=== PATIENT | female | born 1995 | race African-American/Black ===

== ENCOUNTER 2017-08-09 18:08 | Emergency (ER) | payer OTHER ==
[2017-08-09 18:25] VITALS: BP 134/68; PULSE 94; TEMP 98; BMI 25.0
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
[2017-08-09] MEDS ORDERED: IBUPROFEN 600 MG TABLET (FP) PO ONE ×3 (19:12→19:17)
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
== END 2017-08-09 19:20 | disposition home or self-care (01) ==
LOC: JERFT 18:08
DX: S13.4XXA Sprain of ligaments of cervical spine, initial encounter (principal); V43.62XA Car passenger injured in collision with other type car in traffic accident, initial encounter; Y93.89 Activity, other specified; Y92.410 Unspecified street and highway as the place of occurrence of the external cause
CPT/HCPCS: 84703; 99281-25

== ENCOUNTER 2017-12-09 10:51 | Emergency (ER) | payer OTHER ==
[2017-12-09 11:13] VITALS: BP 130/74; PULSE 85; TEMP 99; BMI 25.0
--- NOTE | 2017-12-09 11:39 | PDOC ---
History of Present Illness - General Chief Complaint: Pain Stated Complaint: LT HIP PAIN Time Seen by Provider: 12/09/17 11:21 History Source: Patient Exam Limitations: Clinical Condition - History of Present Illness Initial Comments: 12/09/17 11:29 Patient with no sig PMHx present with complains of left hip pain which has been intermittent for 3 years now. report no trauma or prev injury to hip. report pain comes on when she laying down or ambulating . Denies problem with ambulation Timing/Duration: other (3 years) Severity: moderate Modifying Factors: improves with: rest. worse with: movement Associated Symptoms: reports: denies symptoms Aspirin Received prior to arrival: Yes: no aspirin today Asa Contraindications(Core Measure): Yes: Allergy Past History - Past Medical History Allergies/Adverse Reactions: Allergies Allergy/AdvReac Type Severity Reaction Status Date / Time No Known Allergies Allergy Verified 12/09/17 11:05 Home Medications: Ambulatory Orders Meloxicam 7.5 mg PO DAILY PRN #20 tablet 12/09/17 COPD: No - Suicide/Smoking/Psychosocial Hx Smoking Status: No Smoking History: Never smoked Have you smoked in the past 12 months: No Number of Cigarettes Smoked Daily: 0 Information on smoking cessation initiated: No Hx Alcohol Use: No Drug/Substance Use Hx: No Substance Use Type: None Review of Systems - Review of Systems Is the patient limited Tanzanian proficient: No Constitutional: No: Chills, Diaphoresis, Fever, Loss of Appetite, Malaise, Night Sweats, Weakness, Weight Stable, Unintentional Wgt. Loss, Unexplained wgt Loss, Other HEENTM: No: Eye Pain, Blurred Vision, Tearing, Recent change in vision, Double Vision, Cataracts, Ear Pain, Ocular Prothesis, Ear Discharge, Nose Pain, Nose Congestion, Tinnitus, Nose Bleeding, Hearing Loss, Throat Pain, Throat Swelling , Mouth Pain, Dental Problems, Difficulty Swallowing, Mouth Swelling, Other Respiratory: No: Cough, Orthopnea, Shortness of Breath, SOB with Exertion, SOB at Rest, Stridor, Wheezing, Productive cough, Hemoptysis, Other Cardiac (ROS): No: Chest Pain, Edema, Irregular Heart Rate, Lightheadedness, Palpitations, Syncope, Chest Tightness, Other ABD/GI: No: Abdominal Distended, Abd. Pain w/ defecation, Blood Streaked Bowels , Constipated, Diarrhea, Difficulty Swallowing, Nausea, Poor Appetite, Poor Fluid Intake, Rectal Bleeding, Vomiting, Indigestion, Abdominal cramping, Tarry Stools, Other : No: Burning, Dysuria, Discharge, Frequency, Flank Pain, Hematuria, Incontinence, Pain, Urgency, Other Musculoskeletal: Yes: Joint Pain (left hip). No: Back Pain, Gout, Joint Swelling, Muscle Pain, Muscle Weakness, Neck Pain, Joint Stiffness, Other Neurological: No: Headache, Numbness, Paresthesia, Pre-Existing Deficit, Seizure , Tingling, Tremors, Weakness, Unsteady Gait, Ataxia, Dizziness, Other Psychiatric: No: Anxiety, Depression, Frequent Crying, Stressors, Sleep Pattern Change, Emotional Problems, Mood Swings, Change in Appetite, Other Endocrine: No: Excessive Sweating, Flushing, Intolerance to Cold, Intolerance to Heat, Increased Hunger, Increased Thirst, Increased Urine, Unexplained Weight Gain, Unexplained Weight Loss, Change in Weight, Other Hematologic/Lymphatic: No: Anemia, Blood Clots, Easy Bleeding, Easy Bruising, Bleeding Diathesis, Lymph Node Abnormalities, Swollen Glands, Other *Physical Exam - Vital Signs Last Vital Signs Temp Pulse Resp BP Pulse Ox 99 F 85 16 130/74 100 12/09/17 11:00 12/09/17 11:00 12/09/17 11:00 12/09/17 11:00 12/09/17 11:00 - Physical Exam General Appearance: Yes: Nourished, Appropriately Dressed. No: Apparent Distress HEENT: positive: ONEIL, Normal ENT Inspection, TMs Normal, Pharynx Normal Neck: positive: Trachea midline, Normal Thyroid, Supple. negative: Tender, Rigid Respiratory/Chest: positive: Lungs Clear, Normal Breath Sounds. negative: Chest Tender, Respiratory Distress, Accessory Muscle Use Cardiovascular: positive: Regular Rhythm, Regular Rate Musculoskeletal: positive: Normal Inspection Extremity: positive: Normal Capillary Refill, Normal Inspection, Normal Range of Motion, Pelvis Stable. negative: Tender Neurologic: positive: bilingual speech language pathologist II-XII NML intact, Fully Oriented, Alert, Normal Mood/ Affect, Normal Response, Motor Strength 5/5 (left hip and LE) ED Treatment Course - RADIOLOGY Radiology Studies Ordered: Category Date Time Status HIP & PELVIS-LEFT [RAD] Stat Radiology 12/09/17 11:26 Ordered Medical Decision Making - Medical Decision Making 12/09/17 11:43 Patient present with complains of 3 years h/o left hip pain. no acute pain illicited on exam. x-rays of left hip/pelvis ordered 12/09/17 12:13 x-rays of left hip/pelvis shows no pathology. symptoms likely bursitis. stable for home discharge with orthopedics follow-up *DC/Admit/Observation/Transfer Diagnosis at time of Disposition: Bursitis of left hip Qualifiers: Hip bursitis location: unspecified Qualified Code(s): M70.72 - Other bursitis of hip, left hip - Discharge Dispostion Disposition: HOME Condition at time of disposition: Good Decision to Admit order: No - Prescriptions Prescriptions: Meloxicam 7.5 mg PO DAILY PRN #20 tablet PRN Reason: hip pain - Referrals Referrals: Kate Britton MD [Primary Care Provider] - Oli Stockton MD [Staff Physician] - - Patient Instructions Printed Discharge Instructions: DI for Hip Bursitis, Bursitis (Alternative Therapy) Additional Instructions: Take medication as prescribed. apply to heat twice/ day as needed for pain. follow-up with orthopedics if symptoms persists - Post Discharge Activity
== END 2017-12-09 12:19 | disposition home or self-care (01) ==
LOC: JERFT 10:51
DX: M70.72 Other bursitis of hip, left hip (principal)
CPT/HCPCS: 73523-TC-FY; 84703; 99281-25

== ENCOUNTER 2019-08-25 18:10 | Emergency (ER) | payer OTHER ==
[2019-08-25 18:42] VITALS: BP 124/86; PULSE 96; TEMP 99
--- NOTE | 2019-08-25 18:49 | PDOC ---
Rapid Medical Evaluation Time Seen by Provider: 08/25/19 18:35 Medical Evaluation: Allergies Allergy/AdvReac Type Severity Reaction Status Date / Time No Known Allergies Allergy Verified 12/09/17 11:05 Vital Signs Temp Pulse Resp BP Pulse Ox 99.0 F 96 H 17 124/86 100 08/25/19 18:41 08/25/19 18:41 08/25/19 18:41 08/25/19 18:41 08/25/19 18:41 08/25/19 18:44 HPI: COVID-19 CDC guideline data points: The patient is a 23 y/o female with a cough and bodyaches for the last 2 days. The patient states one week ago she started to have intermittent headaches. She denies COVID contacts or any recent travel. She denies any past medical history or allergies to medications. ROS: NEGATIVE: difficulty breathing, shortness of breath, chest pain, lightheadedness, dizziness, nausea, vomiting and diarrhea. Other 12 point ROS reviewed and negative. Exam: General: NAD, Well-Appearing, Awake, Alert Oriented x3. Vital signs stable. Nontoxic ENT: No rhinorrhea or nasal congestion. Neck: FROM, no midline tenderness. Lungs: Clear to auscultation bilaterally without wheezes, rhonchi or rales. Normal excursion. Patient is able to speak in full sentences. Good air entry b/l, no wheezes/rales/rhonchi Heart: HR: 96, Regular rhythm, S1-S2 present, no murmurs rubs or gallops. Abdomen: Non-distended. MSK/Extremities: No decrease ROM, No obvious deformities. No obvious cyanosis noted. Neuro: Normal Gait, Cranial Nerves II through XII Grossly Intact. Skin: No obvious rashes, bruising. Color Normal Appearing. Assessment/Plan: Pt is a 23 y/o female with cough, bodyaches and intermittent headaches. Patient has a history of this/these comorbidities: none, denies recent travel and known COVID exposure. Patient does not meet testing criteria at this time. ASSESSMENT: Denies recent travel and known Covid exposure. Treatment: none indicated Discharge Disposition - Diagnosis Cough - Discharge Dispostion Disposition: HOME Condition at time of disposition: Stable - Referrals Referrals: Garret Simmons, ASSOCIATE DOCTOR [Primary Care Provider] - 2 Days - Patient Instructions Printed Discharge Instructions: [facility] Instructions, [facility] COVID-19 Isolation Protocol Additional Instructions: You were seen for your cough and possible Coronavirus (COVID-19) Please call the [facility] testing center to make an appointment at or you can call [facility] at from 8:30 AM to 6 PM; or you can visit the [facility] website: [email or web address] for more information about testing at the [facility]. Take Tylenol 650 mg every 6 hours as needed for fever or pain. You may take Robitussin or other [id number] cough syrup. Follow the dosing instru ctions on the bottle. Warm tea, honey, and salt water gargles may help your symptoms. Please take precautions and self quarantine for 2 weeks and follow-up with your primary care doctor and the Department of Health. Return to the nearest emergency department for shortness of breath, difficulty breathing, chest pain, or if you have any changes in your symptoms. visit: [email or web address] for further instructions - Post Discharge Activity
== END 2019-08-25 18:56 | disposition home or self-care (01) ==
LOC: JER 18:10
DX: R05 Cough (principal)
CPT/HCPCS: 99282-25

== ENCOUNTER 2021-05-05 14:03 | Emergency (ER) | payer SELFPAY ==
[2021-05-05] MEDS ORDERED: LACTATED RINGERS SOLUTION 1000 ML INFUS.BAG IV ONE (14:40)
[2021-05-05 15:27] LABS: BASO % 0.4 % (0-2.0); EOS % 0.5 % (0-4.5); HEMOGLOBIN 13.8 GM/dL (10.7-15.3); LYMPH % 22.9 % (8-40); MCH 30.4 pg (25.7-33.7); MCHC 33.7 g/dl (32.0-36.0); MEAN CELL VOLUME 90.4 fl (80-96); MEAN PLT VOLUME 8.1 fl (7.5-11.1); MONO % 9.2 % (3.8-10.2); PLATELET COUNT 309 10^3/uL (134-434); RBC 4.53 M/mm3 (3.60-5.2); WHITE BLOOD COUNT 5.5 K/mm3 (4.0-10.0)
[2021-05-05 15:35] LABS: INR 1.03 (0.83-1.09); PROTHROMBIN TIME (PATIENT) 12.1 SEC (9.7-13.0)
[2021-05-05 15:37] VITALS: BMI 31.3
[2021-05-05 15:37] LABS: ACTIVATED PTT 29.9 SECONDS (25.2-36.5)
[2021-05-05 15:47] LABS: CHLORIDE 104 mmol/L (98-107); SODIUM 137 mmol/L (136-145)
[2021-05-05 15:49] LABS: ALBUMIN 3.7 g/dl (3.4-5.0); ANION GAP 13 MMOL/L (8-16); BLOOD UREA NITROGEN 7.9 mg/dL (7-18); CALCIUM 9.2 mg/dL (8.5-10.1); CO2 21 mmol/L (21-32); GLUCOSE,RANDOM 93 mg/dL (74-106)
[2021-05-05 15:52] LABS: CREATININE 0.8 mg/dL (0.55-1.3); SGOT/AST 14 U/L (15-37)
[2021-05-05 15:53] LABS: SGPT/ALT 18 U/L (13-61)
[2021-05-05 15:54] LABS: BILIRUBIN,TOTAL 0.3 mg/dL (0.2-1); TOT PROT 7.8 g/dl (6.4-8.2)
[2021-05-05 15:55] LABS: ALK PHOS 77 U/L (45-117)
[2021-05-05] MEDS ORDERED: POTASSIUM CHLORIDE TABS 20 MEQ TABLET.ER (FP) PO ONE ×2 (16:51→16:54)
[2021-05-05 17:06] VITALS: TEMP 97.6
[2021-05-05 17:52] LABS: EPI CELLS 13 /uL (0-25.1); HYALINE CASTS 1 /uL (0-3.1); PH,URINE 5.5 (5.0-8.0); URINE APPEARANCE CLEAR; URINE BACTERIA 206 /uL (0-1359); URINE BILIRUBIN NEGATIVE (NEGATIVE); URINE COLOR YELLOW; URINE GLUCOSE (UA) NEGATIVE (NEGATIVE); URINE KETONE NEGATIVE (NEGATIVE); URINE LEUK ESTERASE NEGATIVE (NEGATIVE); URINE NITRITE NEGATIVE (NEGATIVE); URINE PROTEIN TRACE (NEGATIVE); URINE RBC 172 /uL (0-23.9); URINE UROBILINOGEN 0.2 mg/dL (0.2-1.0); URINE WBC 17 /uL (0-25.8)
[2021-05-05 18:06] LABS: COCAINE, UR NEGATIVE (NEGATIVE); METHADONE, UR NEGATIVE (NEGATIVE)
[2021-05-05 18:07] LABS: OPIATES, URI NEGATIVE (NEGATIVE); PHENCYCLIDINE,URINE NEGATIVE (NEGATIVE); URINE BARBITURATES NEGATIVE (NEGATIVE); URINE BENZODIAZEPINES NEGATIVE (NEGATIVE)
[2021-05-05 18:11] LABS: URINE AMPHETAMINES NEGATIVE (NEGATIVE)
[2021-05-05 19:44] VITALS: BP 127/80; PULSE 86
== END 2021-05-05 19:44 | disposition home or self-care (01) ==
LOC: JER 14:03
DX: T39.1X2A Poisoning by 4-Aminophenol derivatives, intentional self-harm, initial encounter (principal); T45.0X2A Poisoning by antiallergic and antiemetic drugs, intentional self-harm, initial encounter
CPT/HCPCS: 36415; 80053; 80307; 81003; 82550; 83735; 84484; 84703; 85025; 85610; 85730; 86850; 86900; 86901; 93005; 93010; 99285-25; C9803; U0003; U0005